=== PATIENT | female | born 1970 | race Caucasian/White ===

== ENCOUNTER 2017-06-20 03:15 | Emergency (ER) | payer BC ==
[2017-06-20] MEDS ORDERED: KETOROLAC TROMETHAMINE INJ/PF 30 MG/1 ML SDV IV ONE (04:38)
[2017-06-20] MEDS ORDERED: MORPHINE SULFATE 10 MG/ML INJ IV ONE ×2 (04:38→07:12)
[2017-06-20] MEDS ORDERED: NORMAL SALINE 1000 ML 1,000 ML IV ONE (04:38)
[2017-06-20] MEDS ORDERED: ONDANSETRON HCL INJ/PF 4 MG/2 ML SDV IV ONE (04:38)
--- NOTE | 2017-06-20 04:40 | ER Document Report ---
ED GI/ - General Mode of Arrival: Ambulatory Information source: Patient TRAVEL OUTSIDE OF THE [place] IN LAST 30 DAYS: No - HPI Patient complains to provider of: Diarrhea, Pelvic pain. No: Vomiting Onset: Yesterday Timing/Duration: Gradual Quality of pain: Sharp Pain Level: 5 Location: Pelvis, Other - Right lower back Vaginal bleeding (Compared to normal period): None Associated symptoms: Diarrhea, Nausea, Urinary urgency. denies: Dysuria, Fever , Urinary hesitancy Exacerbated by: Denies Relieved by: Denies Similar symptoms previously: Yes Recently seen / treated by doctor: No <REDDY CRUZ - Last Filed: 06/20/17 07:12> <IHSAN CARVAJAL - Last Filed: 06/20/17 08:06> - General Chief Complaint: Flank Pain Stated Complaint: ABDOMINAL PAIN Time Seen by Provider: 06/20/17 04:31 Notes: Patient presents complaining of right lower pelvic pain that wraps around to right lower back area. Patient states pain started last night. Patient does complain of feeling like she may have a urinary tract infection with the frequent urge to void. Patient does report nausea and diarrhea. Patient denies any vomiting. Patient is concerned that she may have a kidney stone. 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 denies: Fever EENT: No symptoms reported Cardiovascular: No symptoms reported Respiratory: No symptoms reported. denies: Cough Gastrointestinal: Abdominal pain, Diarrhea, Nausea. denies: Vomiting Genitourinary: Flank pain, Urgency. denies: Dysuria Female Genitourinary: No symptoms reported. denies: Vaginal bleeding Musculoskeletal: Back pain Skin: No symptoms reported Hematologic/Lymphatic: No symptoms reported Neurological/Psychological: No symptoms reported <REDDY CRUZ - Last Filed: 06/20/17 07:12> Physical Exam - General General appearance: Alert, Anxious In distress: Mild - HEENT Head: Normocephalic Nasal: Normal Mouth/Lips: Normal Neck: Normal, Supple. No: Lymphadenopathy - Respiratory Respiratory status: No respiratory distress Chest status: Nontender Breath sounds: Normal. No: Rales, Rhonchi, Stridor, Wheezing Chest palpation: Normal - Cardiovascular Rhythm: Regular Heart sounds: S1 appreciated, S2 appreciated Murmur: No - Abdominal Inspection: Normal Distension: No distension Bowel sounds: Normal Tenderness: Tender - R lower pelvic, Guarding Organomegaly: No organomegaly - Back Back: CVA tenderness - right - Extremities General upper extremity: Normal inspection, Normal strength General lower extremity: Normal inspection, Normal strength - Neurological Neuro grossly intact: Yes Cognition: Normal Adonay Coma Scale Eye Opening: Spontaneous Adonay Coma Scale Verbal: Oriented Delta Coma Scale Motor: Obeys Commands Delta Coma Scale Total: 15 - Psychological Associated symptoms: Normal affect, Normal mood - Skin Skin Temperature: Warm Skin Moisture: Dry Skin Color: Normal <REDDY CRUZ - Last Filed: 06/20/17 07:12> - Vital signs Vitals: Temp Pulse Resp BP Pulse Ox 97.4 F 71 20 139/86 H 100 06/20/17 03:24 06/20/17 03:24 06/20/17 03:24 06/20/17 03:24 06/20/17 03:24 Course - Laboratory Result Diagrams: 06/20/17 04:55 06/20/17 04:55 <REDDY CRUZ - Last Filed: 06/20/17 07:12> - Laboratory Result Diagrams: 06/20/17 04:55 06/20/17 04:55 <IHSAN CARVAJAL - Last Filed: 06/20/17 08:06> - Re-evaluation Re-evalutation: 06/20/17 07:12 Bedside report and handout given to Milind Carvajal NP (REDDY CRUZ) 06/20/17 07:57 CT showed 0.3 cm right UVJ stone with moderate grade obstruction. Also showed a probable benign 5.7 cm cystic component of the right ovary. These findings were discussed with the patient. (IHSAN CARVAJAL) - Vital Signs Vital signs: Temp Pulse Resp BP Pulse Ox 97.4 F 71 20 139/86 H 100 06/20/17 03:24 06/20/17 03:24 06/20/17 03:24 06/20/17 03:24 06/20/17 03:24 - Laboratory Laboratory results interpreted by me: 06/20/17 06/20/17 06/20/17 04:55 04:55 04:55 WBC 11.9 H Seg Neutrophils % 81.1 H Lymphocytes % 12.0 L Absolute Neutrophils 9.6 H Chloride 109 H Est GFR (Non-Af Amer) 59 L Glucose 136 H AST 63 H Ur Leukocyte Esterase TRACE H Discharge <REDDY CRUZ - Last Filed: 06/20/17 07:12> <IHSAN CARVAJAL - Last Filed: 06/20/17 08:06> - Discharge Clinical Impression: Right ureteral calculus, Cyst of right ovary, Ureterovesical junction (UVJ) obstruction Condition: Good Disposition: HOME, SELF-CARE Additional Instructions: Take Flomax as prescribed Pain medications as needed Push fluids Strain urine to see if kidney stone passes Return to ER immediately if pain increases as there is some obstruction from the stone Also found on CT is a probable benign cyst of the right ovary It is recommended that you see your [facility] for prompt ultrasound follow-up of this cyst Prescriptions: Oxycodone HCl/Acetaminophen [Percocet 5-325 mg Tablet] 1 - 2 tab PO ASDIR PRN # 25 tablet PRN Reason: Tamsulosin HCl [Flomax] 0.4 mg PO DAILY #7 cap.er.24h Referrals: BRIANNA MURDOCK MD [Primary Care Provider] - Follow up as needed [facility] [Provider Group] - Follow up as needed [facility] [Provider Group] - Follow up as needed
[2017-06-20 05:19] LABS: ABSOLUTE EOSINOPHILS # (AUTO) 0.1 10^3/uL (0.0-0.6); ABSOLUTE LYMPHOCYTES (AUTO) 1.4 10^3/uL (0.5-4.7); ABSOLUTE MONOCYTES (AUTO) 0.7 10^3/uL (0.1-1.4); ABSOLUTE NEUT (AUTO) 9.6 10^3/uL (1.7-8.2); BASOPHILS % (AUTO) 0.4 % (0-2); EOSINOPHILS % (AUTO) 0.7 % (0-6); HEMATOCRIT 41.4 % (36.0-47.0); HEMOGLOBIN 14.6 g/dL (12.0-15.5); MEAN CORPUSCULAR HEMOGLOBIN 29.2 pg (27.0-33.4); MEAN CORPUSCULAR HGB CONC 35.2 g/dL (32.0-36.0); MEAN CORPUSCULAR VOLUME 83 fl (80-97); MONOCYTES % (AUTO) 5.8 % (3-13); PLATELET COUNT 246 10^3/uL (150-450); SEGMENTED NEUTROPHILS % (AUTO) 81.1 % (42-78); TOTAL CELLS COUNTED % (AUTO) 100 %; WHITE BLOOD COUNT 11.9 10^3/uL (4.0-10.5)
[2017-06-20 05:30] LABS: APPEARANCE,URINE CLEAR; BILIRUBIN,URINE NEGATIVE (NEGATIVE); COLOR,URINE YELLOW; GLUCOSE, URINE NEGATIVE (NEGATIVE); KETONES,URINE NEGATIVE (NEGATIVE); LEUKOCYTE ESTERASE,URINE TRACE (NEGATIVE); NITRITE,URINE NEGATIVE (NEGATIVE); PROTEIN,URINE NEGATIVE (NEGATIVE); URINE SPECIFIC GRAVITY 1.023; UROBILINOGEN,URINE NEGATIVE mg/dL (<2.0)
[2017-06-20 05:52] LABS: ALANINE AMINOTRANSFERASE 34 U/L (9-52); ALBUMIN 4.2 g/dL (3.5-5.0); ALKALINE PHOSPHATASE 92 U/L (38-126); ANION GAP 9 (5-19); ASPARTATE AMINO TRANSFERASE 63 U/L (14-36); BILIRUBIN,DIRECT 0.4 mg/dL (0.0-0.4); BILIRUBIN,TOTAL 0.4 mg/dL (0.2-1.3); BLOOD UREA NITROGEN 18 mg/dL (7-20); CALCIUM 9.7 mg/dL (8.4-10.2); CARBON DIOXIDE 23 mmol/L (22-30); CHLORIDE 109 mmol/L (98-107); GLUCOSE 136 mg/dL (75-110); LIPASE 79.8 U/L (23-300); SODIUM 141.3 mmol/L (137-145); TOTAL PROTEIN 6.8 g/dL (6.3-8.2)
[2017-06-20 06:11] LABS: POTASSIUM 4.4 mmol/L (3.6-5.0)
--- NOTE | 2017-06-20 07:25 | RADIOLOGY REPORT (SQ) ---
EXAM DESCRIPTION: CT ABD/PELVIS WITH IV ONLY CLINICAL HISTORY: 47 years Female, RLQ pain COMPARISON: None. TECHNIQUE: 100 mL Isovue-370 IV contrast. Coronal and sagittal reformat. This exam was performed according to our departmental dose-optimization program, which includes automated exposure control, adjustment of the mA and/or kV according to patient size and/or use of iterative reconstruction technique. FINDINGS: 0.3 cm right ureterovesicular junctional stone causes moderate right hydronephrosis/hydroureter. Moderate right perinephric fluid appears secondary to vesicoureteral reflux. Additional right renal stones measure up to 0.3 cm each. Probably benign 5.7 cm cystic component of the right ovary; recommend prompt ultrasound follow-up. Moderate colonic diverticulosis. Cholecystectomy clips. Adequate appearing IUD. No evidence of appendicitis; possible appendectomy clip. No free fluid. Inferior thorax, liver, pancreas, spleen, adrenals, left kidney, gastrointestinal tract, remaining pelvic organs, lymphatics, vasculature, and musculoskeleton appear otherwise unremarkable. IMPRESSION: 1. A 0.3 cm right UVJ stone with moderate grade obstruction. 2. Probably benign 5.7 cm cystic component of the right ovary; recommend prompt ultrasound follow-up.
[2017-06-20 08:45] VITALS: BP 135/70
== END 2017-06-20 08:45 | disposition home or self-care (01) ==
LOC: ER 03:15
DX: N13.2 Hydronephrosis with renal and ureteral calculous obstruction (principal); N83.201 Unspecified ovarian cyst, right side; R19.7 Diarrhea, unspecified; R39.15 Urgency of urination; Z90.49 Acquired absence of other specified parts of digestive tract
CPT/HCPCS: 96376; 99284; 96361; 96374; 96375; 36415; 83690; 85025; 81025; 80053; 81001; 74177; J1885; J2270; J2405; J7030

== ENCOUNTER → 2020-03-25 | Outpatient (CLI) | payer BC ==
[2020-03-25 09:00] LABS: HEMATOCRIT 43.4 % (36.0-47.0); MEAN CORPUSCULAR HEMOGLOBIN 29.6 pg (27.0-33.4); MEAN CORPUSCULAR HGB CONC 34.6 g/dL (32.0-36.0); MEAN CORPUSCULAR VOLUME 86 fl (80-97); PLATELET COUNT 264 10^3/uL (150-450); RED BLOOD COUNT 5.07 10^6/uL (3.72-5.28); RED CELL DISTRIBUTION WIDTH 13.5 % (11.5-14.0); WHITE BLOOD COUNT 10.2 10^3/uL (4.0-10.5)
[2020-03-25 09:00] LABS: APPEARANCE,URINE SLIGHTLY-CLOUDY; BILIRUBIN,URINE MODERATE (NEGATIVE); GLUCOSE, URINE NEGATIVE (NEGATIVE); KETONES,URINE 20 mg/dL (NEGATIVE); LEUKOCYTE ESTERASE,URINE SMALL (NEGATIVE); NITRITE,URINE NEGATIVE (NEGATIVE); PROTEIN,URINE 100 mg/dL (NEGATIVE); URINE SPECIFIC GRAVITY 1.028
[2020-03-25 09:03] LABS: COLOR,URINE ORANGE
[2020-03-25 09:12] LABS: ALBUMIN 4.3 g/dL (3.5-5.0); ALKALINE PHOSPHATASE 382 U/L (38-126); ANION GAP 11 (5-19); ASPARTATE AMINO TRANSFERASE 265 U/L (14-36); BILIRUBIN,TOTAL 6.1 mg/dL (0.2-1.3); BLOOD UREA NITROGEN 7 mg/dL (7-20); CALCIUM 9.5 mg/dL (8.4-10.2); CARBON DIOXIDE 23 mmol/L (22-30); CHLORIDE 102 mmol/L (98-107); GLUCOSE 143 mg/dL (75-110); IRON(TIBC) 54.2 ug/dL (37-170); TOTAL PROTEIN 7.2 g/dL (6.3-8.2)
[2020-03-25 09:16] LABS: ALBUMIN 4.4 g/dL (3.5-5.0); ALKALINE PHOSPHATASE 388 U/L (38-126); ASPARTATE AMINO TRANSFERASE 279 U/L (14-36); BILIRUBIN,DIRECT 5.1 mg/dL (0.0-0.4); BILIRUBIN,TOTAL 6.4 mg/dL (0.2-1.3); TOTAL PROTEIN 7.3 g/dL (6.3-8.2)
[2020-03-25 09:28] LABS: ABSOLUTE LYMPHOCYTES# (MANUAL) 0.6 10^3/uL (0.5-4.7); ABSOLUTE MONOCYTES # (MANUAL) 0.5 10^3/uL (0.1-1.4); BASOPHILS % (MANUAL) 0 % (0-2); EOSINOPHILS % (MANUAL) 6 % (0-6); LYMPHOCYTES % (MANUAL) 3 % (13-45); MONOCYTES % (MANUAL) 5 % (3-13); PLATELET CLUMPS PRESENT; PLATELET COMMENT ADEQUATE; PLATELET LARGE PRESENT; RBC MORPHOLOGY COMMENT NORMO-CYTIC/CHROMIC; SEGMENTED NEUTROPHILS % (MAN) 83 % (42-78); TOTAL CELLS COUNTED 100
[2020-03-25 09:35] LABS: FREE T4 (FREE THYROXINE) 2.01 ng/dL (0.78-2.19)
[2020-03-25 09:49] LABS: THYROID STIMULATING HORMONE 0.52 uIU/mL (0.47-4.68)
[2020-03-26 07:38] LABS: HEPATITS B SURFACE ANTIGEN Negative (Negative)
[2020-03-26 08:44] LABS: HEPATITIS C VIRUS ANTIBODY <0.1 s/co ratio (0.0-0.9)
== END ==
LOC: OD 08:02
PROVIDERS: ATTEND Family Medicine
DX: R17 Unspecified jaundice (principal); E03.9 Hypothyroidism, unspecified
CPT/HCPCS: 36415; 80053; 80074; 81001; 82728; 83540; 83550; 83735; 84439; 84443; 85025; 86038; 86431; 86701; 87070